=== PATIENT | male | born 1955 ===

== ENCOUNTER 2018-04-10 20:06 | Emergency (ER) | payer OTHER ==
[2018-04-10 20:06] VITALS: BMI 27.6
[2018-04-10 20:18] VITALS: TEMP 98.6
--- NOTE | 2018-04-10 20:29 | C.PDOC ---
History Of Present Illness 62 year old male presents to the ER for a complaint of bleeding from his left arm shunt after dialysis today. Pressure dressing was applied at the time. Denies fever or chills. Time Seen by Provider: 04/10/18 20:29 Chief Complaint (Nursing): Upper Extremity Problem/Injury History Per: Patient History/Exam Limitations: no limitations Onset/Duration Of Symptoms: Hrs Current Symptoms Are (Timing): Still Present Exacerbating Factor(s): Nothing Recent travel outside of the [place]: No Past Medical History Reviewed: Historical Data, Nursing Documentation, Vital Signs Vital Signs: Last Vital Signs Temp 98.6 F 04/10/18 20:12 Pulse 66 04/10/18 20:12 Resp 16 04/10/18 20:12 BP 222/93 H 04/10/18 20:12 Pulse Ox 99 04/10/18 20:35 - Medical History PMH: HTN, End Stage Renal Disease, Chronic Kidney Disease - [facility] Procedures CATARAC PHACOEMULS/ASPIR (11/16/14) INSERT LENS AT CATAR EXT (11/16/14) Family History: States: No Known Family Hx - Social History Hx Alcohol Use: No Hx Substance Use: No - Immunization History Hx Tetanus Toxoid Vaccination: No Hx Influenza Vaccination: No Hx Pneumococcal Vaccination: No Review Of Systems Constitutional: Negative for: Fever, Chills Cardiovascular: Negative for: Chest Pain, Palpitations Respiratory: Negative for: Cough, Shortness of Breath Gastrointestinal: Negative for: Nausea, Vomiting Musculoskeletal: Negative for: Arm Pain Skin: Positive for: Other (Bleeding from left arm shunt) Physical Exam - Physical Exam Appears: Non-toxic Skin: Warm, Dry Head: Normacephalic Oral Mucosa: Moist Chest: Symmetrical, No Tenderness Cardiovascular: Rhythm Regular Respiratory: No Rales, No Rhonchi, No Wheezing Gastrointestinal/Abdominal: Soft, No Tenderness Extremity: Other (Pressure dressing over left arm shunt, good thrill and bruit) Pulses: Left Radial: Normal, Right Radial: Normal Neurological/Psych: Oriented x3 ED Course And Treatment O2 Sat by Pulse Oximetry: 99 Pulse Ox Interpretation: Normal Progress Note: 9:28pm no active bleeding at the HD shunt site. good radial pulses. good capilary refill Disposition Counseled Patient/Family Regarding: Studies Performed, Diagnosis, Need For Followup - Disposition Referrals: Cory Hansen MD [Staff Provider] - Disposition: HOME/ ROUTINE Disposition Time: 20:29 Condition: FAIR Additional Instructions: Please return if symptoms recur Instructions: Arteriovenous Shunt (DC) Forms: [facility] (Ukrainian) - Clinical Impression Clinical Impression: Bleeding from dialysis shunt - Scribe Statement The provider has reviewed the documentation as recorded by the Scribe Erwin James All medical record entries made by the Scribe were at my direction and personally dictated by me. I have reviewed the chart and agree that the record accurately reflects my personal performance of the history, physical exam, medical decision making, and the department course for this patient. I have also personally directed, reviewed, and agree with the discharge instructions and disposition.
[2018-04-10 22:01] VITALS: BP 167/87; PULSE 89; RESP 18; O2SAT 98
== END 2018-04-10 22:00 | disposition home or self-care (01) ==
LOC: C.ER 20:06
DX: T82.838A Hemorrhage due to vascular prosthetic devices, implants and grafts, initial encounter (principal); Y84.9 Medical procedure, unspecified as the cause of abnormal reaction of the patient, or of later complication, without mention of misadventure at the time of the procedure